=== PATIENT | female | born 1965 | race African-American/Black ===

== ENCOUNTER 2022-07-20 11:02 | Emergency (ER) | payer MEDICARE, MEDICAID, SELFPAY ==
--- NOTE | ~2022-07-20 | XR_ITS ---
EXAMINATION: XR chest 2V DATE: 07/20/2022 14:12 INDICATION: Shortness of breath. TECHNIQUE: PA and lateral views of the chest were obtained. COMPARISON: None FINDINGS: Mild opacities in the bilateral dependent lower lung zones at least some of which consists of linear atelectasis. No pleural effusion or pneumothorax. The cardiomediastinal silhouette is normal. IVC raman ter in the upper abdomen. IMPRESSION: 1. Mild opacities in the dependent lower lung zones due at least in part to atelectasis although larisa ot exclude superimposed mild pulmonary edema or pneumonia. Reviewed, dictated and finalized at location A. DEVELOPMENT PROJECT MANAGER IMPRESSION: 1. Mild opacities in the dependent lower lung zones due at least in part to ate lectasis although cannot exclude superimposed mild pulmonary edema or pneumonia .
[2022-07-20 11:37] VITALS: BP 150/88; PULSE 81; RESP 18; TEMP 36.8; O2SAT 97
--- NOTE | 2022-07-20 11:42 | ECG_ITS ---
Measurements Intervals [place] Rate: 77 P: 48 OR: 159 QRS: -52 QRSD: 152 T: 2 QT: 417 QTc: 475 Interpretive Statements SINUS RHYTHM RIGHT BUNDLE BRANCH BLOCK [120+ ms QRS DURATION, UPRIGHT V1, 40+ ms S IN I/aVL/V4/V5/V6] LEFT ANTERIOR FASCICULAR BLOCK [QRS AXIS <= -45, QR IN I, RS IN II] NO PREVIOUS ECG AVAILABLE FOR COMPARISON Electronically Signed On 07-20-2022 16:42:27 MANAGER SKILLED by Samuel Arndt M.D.
[2022-07-20 12:09] LABS: Basophils Absolute Auto 0.1 K/mm3 (0.0-0.1); Basophils Percent Auto 0.4 % (0.2-1.2); Eosinophils Absolute Auto 0.3 K/mm3 (0-0.3); Eosinophils Percent Auto 1.8 % (0-4.4); Hematocrit 37.4 % (37.0-47.0); Hemoglobin 11.7 g/dL (12.0-15.0); Immature Granulocyte Absolute 0.06 K/mm3 (0.00-0.031); Immature Granulocyte Percent A 0.4 % (0-0.5); Lymphocytes Absolute Auto 1.64 K/mm3 (0.9-3.2); Lymphocytes Percent Auto 11.8 % (18.3-44.2); Mean Corpuscular HGB Conc 31.3 g/dl (32-36); Mean Corpuscular Hemoglobin 24.8 pg (26-34); Mean Corpuscular Volume 79.2 fl (80-100); Mean Platelet Volume 10.8 fl (7.4-10.4); Monocytes Absolute Auto 0.6 K/mm3 (0.1-0.6); Monocytes Percent Auto 4.6 % (2.6-8.5); Neutrophils Absolute Auto 11.3 K/mm3 (1.3-6.7); Platelet Count Result 314 k/mm3 (150-375); Red Blood Count 4.72 M/mm3 (4.2-5.4); Red Cell Distribution Width 17.2 % (11.5-14.5); White Blood Count 13.9 K/mm3 (4.5-10.0)
[2022-07-20 12:15] LABS: Partial Thromboplastin Time 28.4 SECONDS (22.3-36.8); Prothrombin Time 13.2 Seconds (11.1-14.7)
[2022-07-20 12:17] LABS: Alanine Aminotransferase 30 U/L (6-35); Albumin Level 4.6 g/dL (3.5-5.1); Alkaline Phosphatase 84 U/L (38-126); Anion Gap 8 mmol/L (8-16); Aspartate Amino Transferase 28 U/L (14-36); Bilirubin,Total 0.5 mg/dL (0.2-1.3); Blood Urea Nitrogen 11 mg/dL (7-17); Calcium 8.5 mg/dL (8.4-10.2); Carbon Dioxide 32 mmol/L (22-30); Chloride 99 mmol/L (98-107); Estimated CRCL calculation 106 ml/min; Estimated Glomerular Filt Rate > 60; Glucose 146 mg/dL (65-110); Lipase 47 U/L (23-300); Potassium 3.2 mmol/L (3.4-5.0); Sodium 139 mmol/L (137-145)
[2022-07-20 12:28] LABS: Troponin I < 0.012 ng/mL (0.000-0.034)
--- NOTE | 2022-07-20 13:57 | ED.URI ---
HPI - URI/Sore Throat General Chief Complaint: Upper Respiratory Infection Stated Complaint: difficulty breathing when laying down, sore throat Time Seen by Provider: 07/20/22 13:55 History of Present Illness HPI Narrative: Patient is a 57-year-old female with a history of CHF here for evaluation of sore throat, shortness of breath, cough and congestion over the past several days. Patient states that shortness of breath is worse when she is lying down flat, endorses weight gain and bilateral leg edema. Additionally notes left-sided chest discomfort that feels like a tightness. She has been compliant with her home medications. No fevers, chills, abdominal pain. She is tolerating her secretions. Related Data Allergies Allergy/AdvReac Type Severity Reaction Status Date / Time codeine Allergy Itching Verified 07/20/22 14:19 morphine Allergy Itching Verified 07/20/22 14:19 Review of Systems Review of Systems: Gen.: Denies fevers or chills Eyes: Denies eye pain or visual change ENT: Reports sore throat Respiratory: Reports shortness of breath and cough CV: Denies chest pain or palpitations GI: Denies abdominal pain nausea, emesis or diarrhea denies burning, urgency, frequency or hematuria Musculoskeletal: Denies back pain or muscle pain Neuro: Denies numbness, tingling, weakness or focal weakness Skin: Denies rash Except as documented, all other systems reviewed and negative Exam Narrative: APPEARANCE: Well appearing, no pain in distress, well-nourished. Head: Normocephalic and atraumatic. EYES: PERRLA/EOMI, conjunctivae clear NOSE: No nasal drainage EARS: External ear normal in appearance THROAT: No tonsillar swelling or exudates noted. Oropharynx is clear. Mucous membranes are moist. NECK: Supple. No adenopathy, no masses. RESPIRATORY:Airway patent, respirations nonlabored. Clear to auscultation bilaterally, no rales, rhonchi, wheezing. CARDIOVASCULAR: Regular rate and rhythm without murmurs, rubs, or gallops. ABDOMINAL: Normoactive bowel sounds. Soft, nontender, nondistended. No rebound tenderness or guarding. MUSCULOSKELETAL: 2+ pitting edema to bilateral lower extremities. Extremities are warm and well-perfused. Moves all extremities well. NEURO: Normal speech. No focal neurologic deficits. SKIN: Skin is warm and dry. No rashes. PSYCHIATRIC: Normal affect/mood.. Course Vital Signs Vital signs: Vital Signs Temperature 98.2 F 07/20/22 11:37 Pulse Rate 81 07/20/22 11:37 Respiratory Rate 18 07/20/22 11:37 Blood Pressure 150/88 H 07/20/22 11:37 Pulse Oximetry 97 07/20/22 11:37 Oxygen Delivery Room Air 07/20/22 11:37 Temperature 97.7 F 07/20/22 14:14 Pulse Rate 71 07/20/22 15:18 Respiratory Rate 20 07/20/22 15:18 Blood Pressure 117/66 07/20/22 15:18 Pulse Oximetry 97 07/20/22 15:18 Oxygen Delivery Room Air 07/20/22 14:15 MDM - URI/Sore Throat MDM Narrative Medical decision making narrative: 57-year-old female here for evaluation of shortness of breath, sore throat and cough for the past several days. Patient is nontoxic-appearing and has normal vital signs, her heart and lungs are clear to auscultation but she does have 2+ pitting edema bilaterally. Her oropharynx is clear, and she has no exudates or tonsillar swelling to suggest strep pharyngitis. Complaining of chest pain with cough; patient's EKG is nonischemic in addition to her troponin. History does not raise concern for ACS. D-dimer is negative so doubt PE. Her BNP is 82; doubt CHF exacerbation. COVID, flu and RSV are negative. Chest x-ray shows atelectasis and possible pneumonia versus pulmonary edema. Favor pneumonia given leukocytosis to 13.9 and normal BNP. She does not meet septic criteria. Shared decision-making was used with patient, she strongly prefers to go home at this time although admission to observation for antibiotics was offered. Patient was advised to return to the ED if her symptoms do not
[2022-07-20 14:14] VITALS: BP 118/67; PULSE 68; RESP 23; TEMP 36.5; O2SAT 93
--- NOTE | 2022-07-20 14:19 | PC.NURSE ---
Provider at bedside; will finish meds and pharmacy at a later time.
[2022-07-20] MEDS: FUROSEMIDE INJ 40 MG/4 ML VIAL IV PUSH (15:00)
[2022-07-20 15:18] VITALS: BP 117/66; PULSE 71; RESP 20; O2SAT 97
[2022-07-20 15:25] LABS: NT Pro B Type Natriuretic Pept 82 pg/mL (5-100)
[2022-07-20 15:35] LABS: Troponin I < 0.012 ng/mL (0.000-0.034)
[2022-07-20 15:47] LABS: Influenza A QL RT-PCR Negative (Negative); Influenza B QL RT-PCR Negative (Negative); RSV RNA, RT-PCR Negative (Negative); SARS-CoV-2 RNA PCR Negative
[2022-07-20 15:51] LABS: D Dimer 0.45 ug/mL (<0.48)
== END 2022-07-20 16:41 | disposition home or self-care (01) ==
PROVIDERS: Emergency Medicine; Emergency Provider Physician Assistant
DX: J18.9 Pneumonia, unspecified organism (principal); I50.9 Heart failure, unspecified; Z20.822 Contact with and (suspected) exposure to COVID-19; I45.2 Bifascicular block
CPT/HCPCS: 36415; 71046; 80053; 83690; 83880; 84484; 85025; 85380; 85610; 85730; 87040; 87637; 93005; 96365; 96367; 96375; 99284; J0456; J0696; J1940

== ENCOUNTER 2025-01-24 01:22 | Emergency (ER) | payer MEDICARE, MEDICAID, SELFPAY ==
--- NOTE | ~2025-01-24 | CT_ITS ---
Non-contrast Head CT History: Slurred speech Technique: Axial non-contrast imaging of the brain was performed. Dose reduction technique was used on this scan by utilizing automated exposure control and iterative reconstruction technique. The dose -length product (DLP) was 681.00 mGy-cm. Findings: There is no evidence of intracranial hemorrhage, mass lesion, or acute infarct. Brain par enchyma appears normal. The ventricles and subarachnoid spaces are normal in size. The calvarium ap pears normal. The visualized paranasal sinuses and mastoid air cells are clear. Impression: No significant abnormality seen. Reviewed, dictated and finalized at location . Impression: No significant abnormality seen.
--- NOTE | ~2025-01-24 | XR_ITS ---
Portable chest x-ray Comparison: 07/20/2022 Clinical History: Weakness Findings: Lungs are clear, without focal consolidation or pleural effusion. Cardiomediastinal silho uette is stable. Bones and soft tissues are unremarkable. Impression: Clear lungs. Possible cardiomegaly. Reviewed, dictated and finalized at location . Impression: Clear lungs. Possible cardiomegaly.
--- NOTE | ~2025-01-24 | CT_ITS ---
CT ANGIOGRAM NECK AND HEAD History: Slurred speech. Technique: Serial spiral axial images through the head and neck were obtained during arterial phase I V injection of 100 cc of Omnipaque 350. 3-D postprocessing and MIP images were then reconstructed on the remote workstation. Dose reduction technique was used on this scan by utilizing automated exposur e control and iterative reconstruction technique. The dose-length product (DLP) was 1174.37 mGy-cm. CTA neck findings: Bilateral vertebral arteries are patent. Bilateral common carotid, internal carot id, and external carotid arteries are patent. No large vessel occlusion or stenosis. No aneurysm. The proximal right internal carotid artery demonstrates 0% stenosis relative to the normal distal artery lumen diameter. The proximal left internal carotid artery demonstrates 0% stenosis relative to the n ormal distal artery lumen diameter. CTA head findings: Distal vertebral arteries, basilar artery, and posterior cerebral arteries are pat ent. Distal internal carotid arteries, middle cerebral arteries, and anterior cerebral arteries are p atent. No large vessel occlusion or stenosis. No aneurysm. Impression: No significant abnormality. Reviewed, dictated and finalized at location . Impression: No significant abnormality.
[2025-01-24 01:19] VITALS: BP 171/87; PULSE 65; RESP 14; TEMP 36.8; O2SAT 94
[2025-01-24 01:32] VITALS: BP 171/87; PULSE 65; RESP 14; O2SAT 96
[2025-01-24 01:35] VITALS: O2SAT 95
[2025-01-24 01:35] LABS: Glucose Point of Care 94 mg/dl (65-105)
[2025-01-24] MEDS: SODIUM CHLORIDE 0.9% IV 1,000 ML 999 ML IV CONT (01:37)
[2025-01-24 01:43] LABS: Basophils Absolute Auto 0.1 K/mm3 (0.0-0.1); Basophils Percent Auto 0.9 % (0.2-1.2); Eosinophils Absolute Auto 0.2 K/mm3 (0-0.3); Eosinophils Percent Auto 2.5 % (0-4.4); Hematocrit 34.6 % (37.0-47.0); Hemoglobin 11.2 g/dL (12.0-15.0); Immature Granulocyte Absolute 0.02 K/mm3 (0.00-0.031); Immature Granulocyte Percent A 0.2 % (0-0.5); Lymphocytes Absolute Auto 3.22 K/mm3 (0.9-3.2); Lymphocytes Percent Auto 33.5 % (18.3-44.2); Mean Corpuscular HGB Conc 32.4 g/dl (32-36); Mean Corpuscular Hemoglobin 25.7 pg (26-34); Mean Corpuscular Volume 79.4 fl (80-100); Mean Platelet Volume 10.3 fl (7.4-10.4); Monocytes Absolute Auto 0.5 K/mm3 (0.1-0.6); Monocytes Percent Auto 5.3 % (2.6-8.5); Neutrophils Absolute Auto 5.5 K/mm3 (1.3-6.7); Neutrophils Percent Auto 57.6 % (45.5-73.1); Platelet Count Result 326 k/mm3 (150-375); Red Blood Count 4.36 M/mm3 (4.2-5.4); Red Cell Distribution Width 15.2 % (11.5-14.5); White Blood Count 9.6 K/mm3 (4.5-10.0)
[2025-01-24 01:45] LABS: Add Urine Microscopic? NO; Appearance Urine Clear (Clear); Bilirubin Urine Negative (Negative); Blood Urine Negative (Negative); Color Urine Yellow (Yellow); Glucose Urine UA Negative (Negative); Ketones Urine Negative (Negative); Leukocyte Esterase Ur Negative LEU/UL (Negative); Nitrate Urine Negative (Negative); Protein Urine Negative (Negative); Specific Grav Ur 1.006 (1.001-1.035); Urobilinogen Urine 0.2 mg/dL (<2.0); pH Urine 7.5 (5.0-9.0)
--- NOTE | 2025-01-24 01:51 | ECG_ITS ---
Test Date: 2025-01-24 01:40:11 Measurements Intervals [place] Rate: 60 P: 52 WI: 213 QRS: -50 QRSD: 174 T: 28 QT: 495 QTc: 496 Interpretive Statements SINUS RHYTHM WITH FIRST DEGREE AV BLOCK RIGHT BUNDLE BRANCH BLOCK LEFT ANTERIOR FASCICULAR BLOCK BASELINE WANDER- II, III, AVR, AVF, V3-V4 ABNORMAL ECG No previous ECG available for comparison Electronically Signed On 01-24-2025 07:08:58 CDT by Gerald Willams D.O.
[2025-01-24 01:56] LABS: Partial Thromboplastin Time 27.8 Seconds (22.3-36.8)
[2025-01-24 01:57] LABS: Alveolar/Arterial O2 Gradient 29.7 mmHg; Base Excess ABG 1.5 mEq/l (+/-2.0); Fractional Inspired Oxygen 21 %; HCO3 ABG 26.3 mEq/l (22.0-26.0); Oxygen Content ABG 15.2 %vol (16.0-22.0); Oxygen Saturation ABG 94.1 % (95.0-100.0); Oxyhemoglobin 92.3 % THb (90.0-100.0); PCO2 ABG 42.4 mmHg (35.0-45.0); PO2 ABG 69.3 mmHg (80.0-100.0); Total Hemoglobin 11.7 g/dL (12.0-18.0); pH ABG 7.411 (7.350-7.450)
[2025-01-24 01:58] LABS: Lipase 121 U/L (23-300); Magnesium 1.6 mg/dL (1.6-2.3)
[2025-01-24 01:59] LABS: Ethanol 73 mg/dL (<10)
[2025-01-24 02:00] LABS: Amphetamine Screen Urine Negative (Negative); Barbiturate Screen Urine Negative (Negative); Benzodiazepines Screen Urine Negative (Negative); Cannabinoid Screen Urine Negative (Negative); Cocaine Screen Urine Negative (Negative); Methadone Screen Urine Negative (Negative); Opiate Screen Urine Negative (Negative); Phencyclidine Screen Urine Negative (Negative)
[2025-01-24 02:01] LABS: Alanine Aminotransferase 19 U/L (6-35); Albumin Level 4.4 g/dL (3.5-5.1); Alkaline Phosphatase 57 U/L (38-126); Anion Gap 14 mmol/L (4-12); Aspartate Amino Transferase 28 U/L (14-36); Bilirubin,Total 0.2 mg/dL (0.2-1.3); Blood Urea Nitrogen 15 mg/dL (7-17); Carbon Dioxide 28 mmol/L (22-30); Chloride 103 mmol/L (98-107); Estimated CRCL calculation 80 ml/min; Estimated Glomerular Filt Rate > 60; Glucose 96 mg/dL (65-110); Potassium 2.6 mmol/L (3.4-5.0); Sodium 145 mmol/L (137-145); Total Protein 7.6 g/dL (6.3-8.2)
[2025-01-24 02:01] LABS: Modified Allen's Test Pass; Site Drawn RIGHT RADIAL
[2025-01-24 02:14] LABS: NT Pro B Type Natriuretic Pept 62 pg/mL (19.9-100); Troponin I < 0.012 ng/mL (0.000-0.034)
[2025-01-24 02:33] LABS: Lactic Acid Reflex 1.7 mmol/L (0.7-2.0)
[2025-01-24] MEDS: KCL 20 MEQ/SW 100 ML 100 ML 50 MEQ IVPB (02:34)
--- NOTE | 2025-01-24 03:47 | ED_ITS ---
HPI - General Adult General Chief complaint: Weakness Stated complaint: SLURRED SPEECH, GEN WKNS, POSSIBLE BENZO OD Time Seen by Provider: 01/24/25 01:24 History of Present Illness HPI narrative: Patient is 59-year-old female who presents emergency department with chief complaint of slurred speech. Patient reports that this evening she was at home and her daughters got into an argument the patient states that she took a trazodone she had an episode where she became unresponsive briefly and then had slurred speech the patient was moving all of her extremities equally when this happen just had difficulty talking and was extremely drowsy Related Data Allergies Allergy/AdvReac Type Severity Reaction Status Date / Time codeine Allergy Itching Verified 07/20/22 14:19 morphine Allergy Itching Verified 07/20/22 14:19 Review of Systems 2 Review of Systems: A 10 system review of systems was completed on the patient and is negative except for what is stated in the HPI. Nursing and ancillary documentation was reviewed. Exam 2 Narrative: GENERAL: Well-appearing, well-nourished, and in no acute distress. HEAD: Normocephalic, atraumatic. EYES: PERRLA and EOMI. ENT: Nares clear, no rhinorrhea or epistaxis. Mucous membranes moist. NECK: Supple. CHEST: Clear to auscultation. No respiratory distress. HEART: Regular rate and rhythm. No murmur heard. Normal peripheral pulses. ABDOMEN: Soft, nontender, nondistended, normal active bowel sounds. EXTREMITIES: Normal range of motion. No edema. SKIN: Warm, dry, no rash. NEURO: No focal deficits. Alert and oriented x3. NIH 0, speech is slow PSYCH: Normal mood and affect. Course Vital Signs Vital signs: Vital Signs Temperature 36.8 C 01/24/25 01:19 Pulse Rate 65 01/24/25 01:19 Respiratory Rate 14 01/24/25 01:19 Blood Pressure 171/87 H 01/24/25 01:19 Pulse Oximetry 94 01/24/25 01:19 Oxygen Delivery Room Air 01/24/25 01:19 Temperature 36.8 C 01/24/25 01:19 Pulse Rate 65 01/24/25 01:32 Respiratory Rate 14 01/24/25 01:32 Blood Pressure 171/87 H 01/24/25 01:32 Pulse Oximetry 95 01/24/25 01:35 Oxygen Delivery Room Air 01/24/25 01:35 Medical Decision Making [facility] Narrative Medical decision making narrative: Differential diagnosis includes medication reaction, electrolyte abnormality, CVA, large vessel occlusion Patient shows no focal motor deficits no facial droop patient does have slurred speech but this could be secondary to the trazodone CTA head neck showed no large vessel occlusion no evidence of hemorrhage Patient was found to be hypokalemic and replacement was started in the emergency department The patient's symptoms have resolved in the ER Patient was found to have a elevated blood alcohol level and also was hypokalemic. Vital Signs Vital Signs: Vital Signs Temperature 36.8 C 01/24/25 01:19 Pulse Rate 65 01/24/25 01:19 Respiratory Rate 14 01/24/25 01:19 Blood Pressure 171/87 H 01/24/25 01:19 Pulse Oximetry 94 01/24/25 01:19 Oxygen Delivery Room Air 01/24/25 01:19 Temperature 36.8 C 01/24/25 01:19 Pulse Rate 65 01/24/25 01:32 Respiratory Rate 14 01/24/25 01:32 Blood Pressure 171/87 H 01/24/25 01:32 Pulse Oximetry 95 01/24/25 01:35 Oxygen Delivery Room Air 01/24/25 01:35 Lab Data 01/24/25 01:34 01/24/25 01:34 Labs: Lab Results 01/24/25 01/24/25 01/24/25 Range/Units 01:27 01:34 01:39 WBC 9.6 (4.5-10.0) K/mm3 RBC 4.36 (4.2-5.4) M/mm3 Hgb 11.2 L (12.0-15.0) g/dL Hct 34.6 L (37.0-47.0) % MCV 79.4 L (80-100) fl MCH 25.7 L (26-34) pg MCHC 32.4 (32-36) g/dl RDW 15.2 H (11.5-14.5) % Plt Count 326 (150-375) k/mm3 MPV 10.3 (7.4-10.4) fl Immature Gran % (Auto) 0.2 (0-0.5) % Neut % (Auto) 57.6 (45.5-73.1) % Lymph % (Auto) 33.5 (18.3-44.2) % [place] % (Auto) 5.3 (2.6-8.5) % Eos % (Auto) 2.5 (0-4.4) % Baso % (Auto) 0.9 (0.2-1.2) % Lymph # (Auto) 3.22 H (0.9-3.2) K/mm3 [place] # (Auto) 0.5 (0.1-0.6) K/mm3 Eos # (Auto) 0.2 (0-0.3) K/mm3 Baso # (Auto) 0.1 (0.0-0.1) K/mm3 Abs Immat Gran (auto) 0.02 (0.00-0.031) K/mm3 Absolute Neuts (auto) 5.5 (1.3-6.7) K/mm3 Absolute Nucleated RBC 0.000 (0.0-0.012) K/mm3 Nucleated RBC % 0.0 (0.0-0.2) % PT 13.0 (11.1-14.7) Seconds INR 1.0 APTT 27.8 (22.3-36.8) Seconds Sodium 145 (137-145) mmol/L Potassium 2.6 L* (3.4-5.0) mmol/L Chloride 103 (98-107) mmol/L Carbon Dioxide 28 (22-30) mmol/L Anion Gap 14 H (4-12) mmol/L BUN 15 (7-17) mg/dL Creatinine 0.86 (0.7-1.0) mg/dL Estim Creat Clear Calc 80 ml/min Estimated GFR > 60 (59 - ) Glucose 96 (65-110) mg/dL POC Capillary Glucose 94 (65-105) mg/dl Lactic Acid 1.7 (0.7-2.0) mmol/L Calcium 9.0 (8.4-10.2) mg/dL Magnesium 1.6 (1.6-2.3) mg/dL Total Bilirubin 0.2 (0.2-1.3) mg/dL AST 28 (14-36) U/L ALT 19 (6-35) U/L Alkaline Phosphatase 57 (38-126) U/L Troponin I < 0.012 (0.000-0.034) ng/mL NT-Pro-B Natriuret Pep 62 (19.9-100) pg/mL Total Protein 7.6 (6.3-8.2) g/dL Albumin 4.4 (3.5-5.1) g/dL Lipase 121 (23-300) U/L TSH (Reflex) 1.910 (0.465-4.68) uIU/mL Urine Color Yellow (Yellow) Urine Appearance Clear (Clear) Urine pH 7.5 (5.0-9.0) Ur Specific [place] 1.006 (1.001-1.035) Urine Protein Negative (Negative) mg/dL Urine Glucose (UA) Negative (Negative) mg/dL Urine Ketones Negative (Negative) mg/dL Ur Blood (Man) Negative (Negative) Urine Nitrate Negative (Negative) Urine Bilirubin Negative (Negative) Urine Urobilinogen 0.2 (<2.0) mg/dL Leukocyte Esterase Rfl Negative (Negative) EMI/UL Urine Opiates Screen Negative (Negative) Urine Methadone Screen Negative (Negative) Ur Barbiturates Screen Negative (Negative) Ur Phencyclidine Scrn Negative (Negative) Ur Amphetamine Screen Negative (Negative) U Benzodiazepines Scrn Negative (Negative) Urine Cocaine Screen Negative (Negative) U Cannabinoids Screen Negative (Negative) Ethyl Alcohol 73 (<10) mg/dL ABG Data ABG results: 01/24/25 01:45 Puncture Site Right radial ABG pH 7.411 ABG pCO2 42.4 ABG pO2 69.3 L ABG PO2/FiO2 Ratio 3.30 ABG HCO3 26.3 H ABG O2 Saturation 94.1 L ABG O2 Content 15.2 L ABG Base Excess 1.5 A-a Gradient 29.7 Oxyhemoglobin 92.3 Total Hemoglobin 11.7 L O2 Delivery Device Not Reportable O2 Liters/Min Not Reportable FiO2 21 Discharge Plan Discharge Clinical Impression: Syncope, Acute hypokalemia Patient Disposition: Still a Patient Condition: Stable Patient Language: Turkmen Prescriptions: No Action azithromycin [Zithromax Z-Pranav] 250 mg tablet See Rx Instructions .ROUTE .COMPLEX Qty: 6 0RF Rx Instructions: For 250 mg dose pack: take 500 mg today (day 1), then 250 mg for 4 days (days 2-5) amoxicillin-pot clavulanate 875-125 mg tablet 1 tablet PO Q12H Qty: 14 0RF miconazole nitrate [Monistat 1 Combo Pack] 1,200-2 mg-% kit See Rx Instructions .ROUTE .COMPLEX Qty: 1 0RF Rx Instructions: place 1 insert into vagina at bedtime day 1;apply cream to area outside vagina twice daily for up to 7 days Follow-up/Referrals: PHYSICIAN,SPECIAL NEEDS BUS DRIVER [Primary Care Provider] - Ventura Becerra MD [Physician] - Time of Disposition: 04:13
[2025-01-24 03:57] VITALS: BP 134/88; PULSE 88; RESP 18; O2SAT 99
[2025-01-24] MEDS: POTASSIUM CHLORIDE 20 MEQ PACKET (FOR LIQUID) 40 MEQ PO (04:12)
[2025-01-24] MEDS: SODIUM CHLORIDE 0.9% IV 100 ML 999 ML (04:12)
--- NOTE | 2025-01-24 04:12 | PC.NURSE ---
MD Singh verballly states it is okay to give pt 100 ml bag IV to help with burning from IV potassium.
[2025-01-24 05:01] VITALS: BP 135/84; PULSE 79; RESP 18; O2SAT 99
== END 2025-01-24 05:02 | disposition home or self-care (01) ==
PROVIDERS: Emergency Provider Emergency Medicine
DX: R55 Syncope and collapse (principal); E87.6 Hypokalemia
CPT/HCPCS: 36415; 36600; 70450; 70496; 70498; 71045; 80053; 80307; 81003; 82077; 82805; 82948; 83605; 83690; 83735; 83880; 84443; 84484; 85018; 85025; 85610; 85730; 93005; 96361; 96365; 96366; 99284; A9270; J3480; J7030; Q9967